=== PATIENT | male | born 1960 | race Caucasian/White ===

== ENCOUNTER → 2016-05-19 | Outpatient (CLI) | payer BC ==
[~2016-05-19] VITALS: Ht 174 cm; Wt 120.0 kg
[~2016-05-19] MED LIST: ACET-62 PO; ALBU8.5H INH; ASPI-1085 PO; BUME1TAB17 PO; HYDR-4246 PO; LISI10TA7 PO; METO25TA6 PO; NITR0.4T SL; SIMV20TA6 PO
== END ==
LOC: RC 12:45
PROVIDERS: ATTEND Internal Medicine
DX: J98.8 Other specified respiratory disorders (principal); R06.09 Other forms of dyspnea
CPT/HCPCS: 94060; 94726

== ENCOUNTER → 2016-06-23 | Outpatient (CLI) | payer BC ==
[2016-06-23 07:05] LABS: ALBUMIN 4.6 G/DL (3.5-5.0); ALBUMIN/GLOBULIN RATIO 1.5 RATIO (1.1-2.2); ALKALINE PHOSPHATASE 71 U/L (38-126); ALT (SGPT) 38 U/L (21-72); AST (SGOT) 23 U/L (17-59); TOTAL PROTEIN 7.6 G/DL (6.3-8.2)
[2016-06-25 00:52] LABS: RISK FACTOR 6.9 RATIO (0-5.0)
== END ==
LOC: LAB 06:40
PROVIDERS: ATTEND Internal Medicine Cardiovascular Disease
DX: E78.2 Mixed hyperlipidemia (principal)
CPT/HCPCS: 36415; 80061; 80076